=== PATIENT | female | born 2000 ===

== ENCOUNTER 2021-12-24 03:02 | Inpatient (IN) | payer OTHER ==
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
[2021-12-24] MEDS ORDERED: CARBOPROST TROMETHAMINE 250 MCG/1 ML INJ IM PRN (05:25)
[2021-12-24] MEDS ORDERED: OXYTOCIN 10 UNIT/1 ML INJ IM PRN (05:25)
[2021-12-24] MEDS ORDERED: METHYLERGONOVINE MALEATE 0.2 MG/ML VIAL IM PRN (05:25)
[2021-12-24] MEDS ORDERED: fentaNYL 100 MCG/2 ML INJ IV PRN (05:25)
[2021-12-24] MEDS ORDERED: ACETAMINOPHEN 325 MG TAB PO PRN (05:25)
[2021-12-24] MEDS ORDERED: LOPERAMIDE 2 MG CAP PO PRN (05:25)
[2021-12-24] MEDS ORDERED: BUTORPHANOL 2 MG/1 ML INJ IV PRN (05:25)
[2021-12-24] MEDS ORDERED: ePHEDrine SULFATE 50 MG/1 ML INJ IV PRN ×2 (05:25→09:56)
[2021-12-24] MEDS ORDERED: miSOPROStol 200 MCG TAB PR PRN (05:25)
[2021-12-24] MEDS ORDERED: MINERAL OIL 30 ML ORAL LIQD PO PRN (05:25)
[2021-12-24] MEDS ORDERED: TERBUTALINE 1 MG/1 ML INJ SUB-Q PRN (05:25)
[2021-12-24] MEDS ORDERED: LIDOCAINE (2%) 20 MG/1 ML VIAL 20 ML MDV INFILTRATI ONE (05:25)
[2021-12-24] MEDS ORDERED: OXYTOCIN DRIP 30 UNITS/500 ML BAG IV SCH ×2 (06:00)
[2021-12-24 06:58] LABS: Hematocrit 31.6 % (30.3-42.9); Hemoglobin 10.4 gm/dl (10.1-14.3); Mean Corpuscular HGB Conc 33 % (30-34); Mean Corpuscular Volume 85 fl (79-97); Platelet Count 226 K/mm3 (140-440); Red Blood Count 3.72 M/mm3 (3.65-5.03); Red Cell Distribution Width 16.6 % (13.2-15.2)
[2021-12-24] MEDS: LACTATED RINGERS 1,000 ML IV SCH ×3 (09:10→18:02)
[2021-12-24] MEDS ORDERED: NALOXONE 0.4 MG/1 ML INJ IV PRN (09:56)
--- NOTE | 2021-12-24 10:28 | Anesthesia Consultation ---
Anesthesia Consult and Med Hx Date of service: 12/24/21 - Airway Anesthetic Teeth Evaluation: Poor ROM Head & Neck: Adequate Mental/Hyoid Distance: Adequate Mallampati Class: Class II Intubation Access Assessment: Probably Good - Pulmonary Exam CTA: Yes - Cardiac Exam Cardiac Exam: RRR - Pre-Operative Health Status ASA Pre-Surgery Classification: ASA2 Proposed Anesthetic Plan: Epidural - Pulmonary Hx Smoking: Yes (Vaping x 4 yrs) Hx Asthma: No - Cardiovascular System Hx Hypertension: No - Central Nervous System Hx Seizures: No Hx Psychiatric Problems: No - Endocrine Hx Renal Disease: No Hx Hypothyroidism: No Hx Hyperthyroidism: No - Hematic Hx Anemia: No Hx Sickle Cell Disease: No - Other Systems Hx Alcohol Use: Yes Hx Obesity: Yes
--- NOTE | 2021-12-24 10:32 | Progress Note ---
Labor Epidural - Labor Epidural Start Time: 10:00 Stop Time: 10:14 Performed by:: BRAULIO DELEON Procedure: Patient is requesting epidural for labor pain. H&P and labs reviewed. Procedure explained, questions answered, consent obtained. Patient placed in sitting position with monitors applied. Timeout performed immediately before start of procedure. Prep/drape in usual sterile fashion. Skin localized 3 mL 1% lidocaine at L[3]-L[4] interspace. 17-gauge Tuohy epidural needle advanced to DACIA with saline at [8] cm. No blood/CSF noted via epidural needle. Epidural catheter advanced to [12] cm. Negative aspiration for blood and CSF via catheter, negative response to test dose 3 ml 1.5% lidocaine w/ epi. Sterile dressing applied followed by tape reinforcement. Patient tolerated procedure well. No immediate complications noted.
[2021-12-24] MEDS: fentaNYL-BUPIV 2 MCG/ML-0.125% 200 MCG/100 ML BAG EPIDURAL SCH ×2 (11:31→19:47)
--- NOTE | 2021-12-24 18:36 | Progress Note ---
Assessment and Plan Anticipate vaginal delivery - Patient Problems (1) 39 weeks gestation of Current Visit: Yes Status: Acute (2) Active labor at term Current Visit: Yes Status: Acute (3) SROM (spontaneous rupture of membranes) Current Visit: Yes Status: Acute Subjective - Subjective Date of service: 12/24/21 Principal diagnosis: IUP@39 wks SROM Patient reports: no new complaints Objective - Vital Signs Vital Signs: Vital Signs - 12hr 12/24/21 12/24/21 12/24/21 06:37 07:08 07:12 Temperature 98.1 F Pulse Rate 98 H 32 L Blood Pressure 141/80 O2 Sat by Pulse 94 98 Oximetry O2 Sat by Pulse 98 Oximetry [ Anterior Bilateral Throughout] 12/24/21 12/24/21 12/24/21 07:13 07:18 07:23 Temperature Pulse Rate 93 H 89 103 H Blood Pressure O2 Sat by Pulse 97 97 97 Oximetry O2 Sat by Pulse Oximetry [ Anterior Bilateral Throughout] 12/24/21 12/24/21 12/24/21 07:28 07:33 07:38 Temperature Pulse Rate 99 H 100 H 93 H Blood Pressure O2 Sat by Pulse 96 97 96 Oximetry O2 Sat by Pulse Oximetry [ Anterior Bilateral Throughout] 12/24/21 12/24/21 12/24/21 07:43 07:48 07:53 Temperature Pulse Rate 100 H 100 H 97 H Blood Pressure O2 Sat by Pulse 97 96 97 Oximetry O2 Sat by Pulse Oximetry [ Anterior Bilateral Throughout] 12/24/21 12/24/21 12/24/21 08:02 08:07 08:12 Temperature Pulse Rate 101 H 98 H 114 H Blood Pressure O2 Sat by Pulse 97 96 96 Oximetry O2 Sat by Pulse Oximetry [ Anterior Bilateral Throughout] 12/24/21 12/24/21 12/24/21 08:17 08:22 08:27 Temperature Pulse Rate 93 H 91 H 90 Blood Pressure O2 Sat by Pulse 96 96 96 Oximetry O2 Sat by Pulse Oximetry [ Anterior Bilateral Throughout] 12/24/21 12/24/21 12/24/21 08:32 08:37 08:42 Temperature Pulse Rate 95 H 95 H 95 H Blood Pressure O2 Sat by Pulse 96 96 96 Oximetry O2 Sat by Pulse Oximetry [ Anterior Bilateral Throughout] 12/24/21 12/24/21 12/24/21 08:45 08:47 08:52 Temperature Pulse Rate 87 88 106 H Blood Pressure O2 Sat by Pulse 94 96 96 Oximetry O2 Sat by Pulse Oximetry [ Anterior Bilateral Throughout] 12/24/21 12/24/21 12/24/21 08:58 09:03 09:08 Temperature Pulse Rate 101 H 100 H 94 H Blood Pressure O2 Sat by Pulse 99 97 98 Oximetry O2 Sat by Pulse Oximetry [ Anterior Bilateral Throughout] 12/24/21 12/24/21 12/24/21 09:09 09:13 09:18 Temperature 98.5 F Pulse Rate 92 H 92 H 101 H Blood Pressure 121/74 O2 Sat by Pulse 97 98 Oximetry O2 Sat by Pulse Oximetry [ Anterior Bilateral Throughout] 12/24/21 12/24/21 12/24/21 09:23 09:28 09:33 Temperature Pulse Rate 95 H 91 H 87 Blood Pressure O2 Sat by Pulse 98 97 98 Oximetry O2 Sat by Pulse Oximetry [ Anterior Bilateral Throughout] 12/24/21 12/24/21 12/24/21 09:38 09:43 09:52 Temperature Pulse Rate 91 H 91 H 107 H Blood Pressure O2 Sat by Pulse 98 98 99 Oximetry O2 Sat by Pulse Oximetry [ Anterior Bilateral Throughout] 12/24/21 12/24/21 12/24/21 09:57 10:00 10:01 Temperature Pulse Rate 100 H 96 H 99 H Blood Pressure 136/79 141/77 O2 Sat by Pulse 99 Oximetry O2 Sat by Pulse Oximetry [ Anterior Bilateral Throughout] 12/24/21 12/24/21 12/24/21 10:02 10:04 10:05 Temperature Pulse Rate 97 H 98 H 106 H Blood Pressure 142/84 145/93 O2 Sat by Pulse 100 Oximetry O2 Sat by Pulse Oximetry [ Anterior Bilateral Throughout] 12/24/21 12/24/21 12/24/21 10:07 10:09 10:11 Temperature Pulse Rate 108 H 108 H 105 H Blood Pressure 141/71 135/72 136/74 O2 Sat by Pulse 99 Oximetry O2 Sat by Pulse Oximetry [ Anterior Bilateral Throughout] 12/24/21 12/24/21 12/24/21 10:12 10:13 10:15 Temperature Pulse Rate 108 H 100 H 89 Blood Pressure 135/73 134/75 O2 Sat by Pulse 99 Oximetry O2 Sat by Pulse Oximetry [ Anterior Bilateral Throughout] 12/24/21 12/24/21 12/24/21 10:17 10:22 10:23 Temperature Pulse Rate 99 H 94 H 90 Blood Pressure 129/68 118/64 O2 Sat by Pulse 98 98 Oximetry O2 Sat by Pulse Oximetry [ Anterior Bilateral Throughout] 12/24/21 12/24/21 12/24/21 10:27 10:29 10:32 Temperature Pulse Rate 91 H 95 H 94 H Blood Pressure 115/54 O2 Sat by Pulse 97 97 Oximetry O2 Sat by Pulse Oximetry [ Anterior Bilateral Throughout] 12/24/21 12/24/21 12/24/21 10:37 10:42 10:44 Temperature Pulse Rate 96 H 98 H 93 H Blood Pressure 115/59 O2 Sat by Pulse 97 96 Oximetry O2 Sat by Pulse Oximetry [ Anterior Bilateral Throughout] 12/24/21 12/24/21 12/24/21 10:47 10:52 10:57 Temperature Pulse Rate 88 84 91 H Blood Pressure O2 Sat by Pulse 96 96 96 Oximetry O2 Sat by Pulse Oximetry [ Anterior Bilateral Throughout] 12/24/21 12/24/21 12/24/21 11:00 11:02 11:07 Temperature Pulse Rate 85 87 83 Blood Pressure 100/56 O2 Sat by Pulse 96 96 Oximetry O2 Sat by Pulse Oximetry [ Anterior Bilateral Throughout] 12/24/21 12/24/21 12/24/21 11:11 11:12 11:15 Temperature 98.6 F Pulse Rate 77 84 96 H Blood Pressure 106/66 O2 Sat by Pulse 94 97 Oximetry O2 Sat by Pulse Oximetry [ Anterior Bilateral Throughout] 12/24/21 12/24/21 12/24/21 11:17 11:22 11:27 Temperature Pulse Rate 94 H 90 94 H Blood Pressure O2 Sat by Pulse 96 97 97 Oximetry O2 Sat by Pulse Oximetry [ Anterior Bilateral Throughout] 12/24/21 12/24/21 12/24/21 11:29 11:32 11:37 Temperature Pulse Rate 94 H 92 H 83 Blood Pressure 111/70 O2 Sat by Pulse 96 97 Oximetry O2 Sat by Pulse Oximetry [ Anterior Bilateral Throughout] 12/24/21 12/24/21 12/24/21 11:42 11:47 11:52 Temperature Pulse Rate 95 H 97 H 101 H Blood Pressure O2 Sat by Pulse 97 97 97 Oximetry O2 Sat by Pulse Oximetry [ Anterior Bilateral Throughout] 12/24/21 12/24/21 12/24/21 11:54 11:57 12:02 Temperature Pulse Rate 90 92 H 100 H Blood Pressure O2 Sat by Pulse 94 97 96 Oximetry O2 Sat by Pulse Oximetry [ Anterior Bilateral Throughout] 12/24/21 12/24/21 12/24/21 12:07 12:12 12:13 Temperature Pulse Rate 102 H 93 H 98 H Blood Pressure O2 Sat by Pulse 96 96 94 Oximetry O2 Sat by Pulse Oximetry [ Anterior Bilateral Throughout] 12/24/21 12/24/21 12/24/21 12:17 12:22 12:27 Temperature Pulse Rate 105 H 93 H 95 H Blood Pressure O2 Sat by Pulse 97 96 97 Oximetry O2 Sat by Pulse Oximetry [ Anterior Bilateral Throughout] 12/24/21 12/24/21 12/24/21 12:32 12:37 12:41 Temperature Pulse Rate 84 93 H 86 Blood Pressure 108/59 O2 Sat by Pulse 96 97 Oximetry O2 Sat by Pulse Oximetry [ Anterior Bilateral Throughout] 12/24/21 12/24/21 12/24/21 12:42 12:47 13:41 Temperature 98.2 F Pulse Rate 88 90 Blood Pressure O2 Sat by Pulse 96 97 Oximetry O2 Sat by Pulse Oximetry [ Anterior Bilateral Throughout] 12/24/21 12/24/21 12/24/21 13:42 14:43 15:42 Temperature Pulse Rate 85 92 H 93 H Blood Pressure 107/58 110/57 108/55 O2 Sat by Pulse Oximetry O2 Sat by Pulse Oximetry [ Anterior Bilateral Throughout] 12/24/21 12/24/21 12/24/21 16:42 16:50 17:41 Temperature 98.2 F Pulse Rate 90 95 H Blood Pressure 110/62 108/62 O2 Sat by Pulse Oximetry O2 Sat by Pulse Oximetry [ Anterior Bilateral Throughout] 12/24/21 18:03 Temperature 98.2 F Pulse Rate Blood Pressure O2 Sat by Pulse Oximetry O2 Sat by Pulse Oximetry [ Anterior Bilateral Throughout] - Exam Breasts: deferred Cardiovascular: Normal S1 Lungs: Normal air movement Abdomen: Present: normal appearance, soft. Absent: distention, tenderness, guarding Vulva: both: normal Uterus: Present: fundal height above umbilicus. Absent: tenderness FHR: category 1 Uterine Contraction Monitor Mode: Internal Cervical Dilatation: 5 (forebag ruptured, copiuos clear fluid, ISE and IUPG placed w/o difficulty after verbal consent obtained) Cervical Effacement Percentage: 70 station: -1 Uterine Contraction Frequency (min): 3 Uterine Contraction Pattern: Regular Extremities: normal - Labs Labs: Abnormal Labs 12/24/21 06:45 RDW 16.6 H Laboratory Results - last 24 hr 12/24/21 12/24/21 12/24/21 06:45 06:45 12:46 WBC 9.5 RBC 3.72 Hgb 10.4 Hct 31.6 MCV 85 MCH 28 MCHC 33 RDW 16.6 H Plt Count 226 Membranes Rupture SARS-CoV-2 (PCR) Negative Blood Type O POSITIVE Antibody Screen Negative 12/24/21 Unknown WBC RBC Hgb Hct MCV MCH MCHC RDW Plt Count Membranes Rupture Negative SARS-CoV-2 (PCR) Blood Type Antibody Screen
[2021-12-24] MEDS ORDERED: CARBOPROST TROMETHAMINE 250 MCG/1 ML INJ IM ONE (21:05)
[2021-12-24] MEDS ORDERED: METHYLERGONOVINE MALEATE 0.2 MG/ML VIAL IM ONE (21:05)
[2021-12-24] MEDS ORDERED: miSOPROStol 200 MCG TAB ONE (21:05)
--- NOTE | 2021-12-24 21:25 | Procedure Note ---
OB Delivery Note - Delivery Date of Delivery: 12/24/21 Surgeon: JOSE ANTONIO PEÑA Estimated blood loss: other (450mL) - Vaginal Delivery presentation: vertex Delivery position: OA Intrapartum events: none Delivery augmentation: pitocin Delivery monitor: external FHT, external uterine, internal FHT, internal uterine Route of delivery: Delivery placenta: spontaneous (intact) Episiotomy: none Anesthesia: epidural Delivery comments: Mild uterine atony noted after delivery that resolved with Pitocin bolus, Methergine 0.2mg IM and manual uterine massage. - A at 1 minute: 9 at 5 minutes: 9 Infant Gender: Male (8lbs 10oz)
[2021-12-25] MEDS ORDERED: OXYTOCIN DRIP 30 UNITS/500 ML BAG IV SCH (00:03)
[2021-12-25] MEDS ORDERED: WITCH HAZEL/ GLYCERIN PAD TP PRN (00:03)
[2021-12-25] MEDS ORDERED: ONDANSETRON 4 MG/2 ML INJ IV PRN (00:03)
[2021-12-25] MEDS ORDERED: DOCUSATE SODIUM 100 MG CAP PO PRN (00:03)
[2021-12-25] MEDS ORDERED: PROMETHAZINE 25 MG TAB PO PRN (00:03)
[2021-12-25] MEDS ORDERED: MAGNESIUM HYDROXIDE (MOM) ORAL LIQD UDC PO PRN (00:03)
[2021-12-25] MEDS ORDERED: SENNOSIDES/DOCUSATE SODIUM 8.6/50 MG TAB PO PRN (00:03)
[2021-12-25] MEDS ORDERED: PROMETHAZINE 25 MG RECT SUPP PR PRN (00:03)
[2021-12-25] MEDS ORDERED: ACETAMINOPHEN 500 MG TAB PO PRN (00:03)
[2021-12-25] MEDS ORDERED: diphenhydrAMINE 25 MG CAP PO PRN (00:03)
[2021-12-25] MEDS: IBUPROFEN 800 MG TAB PO PRN ×3 (00:35→23:46)
[2021-12-25] MEDS ORDERED: TETANUS,DIPH,PERTUSS(ACELL) VACCINE 0.5 ML SYRINGE IM ONE (06:00)
[2021-12-25] MEDS: LANOLIN/ZINC/DIMETHICONE (LANSINOH) 7 GM TP PRN ×2 (08:17→20:03)
--- NOTE | 2021-12-25 09:34 | Progress Note ---
Assessment and Plan - Patient Problems (1) Delivery normal Current Visit: Yes Status: Acute Plan to address problem: Continue PP athway, ? home tomorrow (2) 39 weeks gestation of Current Visit: Yes Status: Acute (3) Active labor at term Current Visit: Yes Status: Acute (4) SROM (spontaneous rupture of membranes) Current Visit: Yes Status: Acute Subjective - Subjective Date of service: 12/25/21 Principal diagnosis: PPD#1 Interval history: No complaints, minimal bleeding Patient reports: appetite normal, voiding normally, pain well controlled, ambulating normally Objective - Vital Signs Latest vital signs: Vital Signs Temp Pulse Resp BP BP Pulse Ox Pulse Ox 12/25/21 08:05 95 12/25/21 07:39 98.0 F 74 18 115/79 95 12/24/21 23:45 98.2 F 97 H 20 126/85 100 12/24/21 23:30 99 12/24/21 22:41 80 124/81 12/24/21 22:29 98.4 F 12/24/21 22:03 85 117/66 12/24/21 21:41 95 H 118/89 12/24/21 21:28 97.3 F L 12/24/21 20:42 100 H 127/73 12/24/21 19:47 99 12/24/21 19:45 98.6 F 12/24/21 19:42 91 H 117/68 12/24/21 18:42 96 H 114/66 12/24/21 18:03 98.2 F 12/24/21 17:41 95 H 108/62 12/24/21 16:50 98.2 F 12/24/21 16:42 90 110/62 12/24/21 15:42 93 H 108/55 12/24/21 14:43 92 H 110/57 12/24/21 13:42 85 107/58 12/24/21 13:41 98.2 F 12/24/21 12:47 90 97 12/24/21 12:42 88 96 12/24/21 12:41 86 108/59 12/24/21 12:37 93 H 97 12/24/21 12:32 84 96 12/24/21 12:27 95 H 97 12/24/21 12:22 93 H 96 12/24/21 12:17 105 H 97 12/24/21 12:13 98 H 94 12/24/21 12:12 93 H 96 12/24/21 12:07 102 H 96 12/24/21 12:02 100 H 96 12/24/21 11:57 92 H 97 12/24/21 11:54 90 94 12/24/21 11:52 101 H 97 12/24/21 11:47 97 H 97 12/24/21 11:42 95 H 97 12/24/21 11:37 83 97 12/24/21 11:32 92 H 96 12/24/21 11:29 94 H 111/70 12/24/21 11:27 94 H 97 12/24/21 11:22 90 97 12/24/21 11:17 94 H 96 12/24/21 11:15 98.6 F 96 H 106/66 12/24/21 11:12 84 97 12/24/21 11:11 77 94 12/24/21 11:07 83 96 12/24/21 11:02 87 96 12/24/21 11:00 85 100/56 12/24/21 10:57 91 H 96 12/24/21 10:52 84 96 12/24/21 10:47 88 96 12/24/21 10:44 93 H 115/59 12/24/21 10:42 98 H 96 12/24/21 10:37 96 H 97 12/24/21 10:32 94 H 97 12/24/21 10:29 95 H 115/54 12/24/21 10:27 91 H 97 12/24/21 10:23 90 118/64 12/24/21 10:22 94 H 98 12/24/21 10:17 99 H 129/68 98 12/24/21 10:15 89 134/75 12/24/21 10:13 100 H 135/73 12/24/21 10:12 108 H 99 12/24/21 10:11 105 H 136/74 12/24/21 10:09 108 H 135/72 12/24/21 10:07 108 H 141/71 99 12/24/21 10:05 106 H 145/93 12/24/21 10:04 98 H 142/84 12/24/21 10:02 97 H 100 12/24/21 10:01 99 H 141/77 12/24/21 10:00 96 H 136/79 12/24/21 09:57 100 H 99 12/24/21 09:52 107 H 99 12/24/21 09:43 91 H 98 12/24/21 09:38 91 H 98 12/24/21 09:33 87 98 Intake and Output 12/24/21 12/25/21 12/25/21 22:59 06:59 14:59 Intake Total 1065.966 120 Output Total 300 400 Balance 765.966 -280 Intake: IV 1065.966 Lactated Ringers 1,000 ml 1000 @ 125 mls/hr IV DIRECT MICHAELA Rx#:[id number] PITOCin/NS 30 UNIT/500ML 65.966 30 units In 500 ml @ 2 mls/hr IV TITR MICHAELA Rx#: [id number] Oral 120 Output: Urine 300 400 Indwelling Catheter 300 Void 400 Other: Total, Intake Amount 120 Total, Output Amount 100 400 Estimated Blood Loss 450 - Exam Breasts: Present: normal, . Absent: pain, skin changes, engorged Lungs: Present: Normal air movement Abdomen: Present: normal appearance, soft. Absent: distention, tenderness, guarding Uterus: Present: fundal height below umbilicus. Absent: tenderness Extremities: Present: normal, edema (+1). Absent: tenderness
[2021-12-25 10:09] LABS: Hematocrit 31.3 % (30.3-42.9); Hemoglobin 10.3 gm/dl (10.1-14.3)
[2021-12-25] MEDS: PRENATAL VIT27-FE FUMARATE-FOLIC ACID VIT TAB PO SCH (10:27)
[2021-12-25] MEDS: FERROUS SULFATE 325 MG TAB PO SCH (10:27)
--- NOTE | 2021-12-25 12:38 | Post Anesthesia Evaluation ---
- Post Anesthesia Evaluation Patient Participated: Yes Airway Patent: Yes Stable Respiratory Function: Yes Nausea/Vomiting: No Temp > 96.8F: Yes Pain Manageable: Yes Adequeate Hydration: Yes Anesthesia Complications: No Block Receding Appropriately: Yes Patient on Ventilator: No
[2021-12-26] MEDS: IBUPROFEN 800 MG TAB PO PRN (05:46)
--- NOTE | 2021-12-26 08:36 | Discharge Summary ---
Providers - Providers Date of Admission: 12/24/21 05:26 Date of discharge: 12/26/21 Attending physician: NIKOLAS HOLCOMB 12/25/21 00:03 Consult to Miniature Train Driver [CONS] Routine Reason For Exam: assistance with , SNS Primary care physician: ANALYST PROGRAMMER Hospitalization Reason for admission: other (leaking fluid) Delivery: Procedure details: see delivery noted Episiotomy: none Laceration: none [place] baby: male Hospital course: Pt admitted and underwent IOL for presumed srom. was not complicated. pt to be d/c home today PPD#2 Condition at discharge: Good Disposition: HOME / SELF CARE / HOMELESS - Discharge Diagnoses (1) 39 weeks gestation of Status: Acute (2) SROM (spontaneous rupture of membranes) Status: Acute (3) Active labor at term Status: Acute (4) Delivery normal Status: Acute Plan - Discharge Medications Prescriptions: Lidocain2.5%/Prilocai2.5% [Emla] 5 gm TP ONCE #1 tube Ferrous Sulfate [Feosol 325 MG tab] 325 mg PO DAILY #90 tablet Ibuprofen [Motrin 600 MG tab] 600 mg PO Q6H PRN #30 tablet PRN Reason: Pain - Provider Discharge Summary Activity: no sex for 6 weeks, no heavy lifting 4 weeks Diet: routine Instructions: routine Additional instructions: [] Smoking cessation referral if applicable(refer to patient education folder for contact #) [] Refer to [facility]'s [facility] Booklet Call your doctor immediately for: * Fever > 100.5 * Heavy vaginal bleeding ( >1 pad per hour) * Severe persistent headache * Shortness of breath * Reddened, hot, painful area to leg or breast * Drainage or odor from incision. * Keep incision clean and dry at all times and follow doctor's instructions regarding bathing/showering CALL THE OFFICE TO SCHEDULE THE CIRCUMCISION FOR THE BABY AND YOUR 4 WK POST VISIT. - Follow up plan Follow up: PRIMARY CARE, [Primary Care Provider] - 7 Days
[2021-12-26] MEDS: FERROUS SULFATE 325 MG TAB PO SCH (10:42)
[2021-12-26] MEDS: PRENATAL VIT27-FE FUMARATE-FOLIC ACID VIT TAB PO SCH (10:42)
[2021-12-26 13:52] VITALS: BP 113/76
== END 2021-12-26 15:15 | disposition home or self-care (01) | DRG 807 ==
LOC: TRG 03:02 → APU 03:02 → TRG 05:26 → LD 05:26 → OB 12-25
PROVIDERS: ADMIT Obstetrics & Gynecology; ATTEND Obstetrics & Gynecology
PROC: 10E0XZZ Delivery of Products of Conception, External Approach (ICD-10-PCS; principal; 2021-12-24)
PROC: 3E0R3BZ Introduction of Anesthetic Agent into Spinal Canal, Percutaneous Approach (ICD-10-PCS; 2021-12-24)
PROC: 00HU33Z Insertion of Infusion Device into Spinal Canal, Percutaneous Approach (ICD-10-PCS; 2021-12-24)
PROC: 3E0234Z Introduction of Serum, Toxoid and Vaccine into Muscle, Percutaneous Approach (ICD-10-PCS; 2021-12-25)
DX: O99.214 Obesity complicating childbirth (principal); Z37.0 Single live birth; Z20.822 Contact with and (suspected) exposure to COVID-19; Z3A.39 39 weeks gestation of pregnancy; Z23 Encounter for immunization; Z82.3 Family history of stroke; Z82.49 Family history of ischemic heart disease and other diseases of the circulatory system; Z80.3 Family history of malignant neoplasm of breast; Z80.41 Family history of malignant neoplasm of ovary; Z80.0 Family history of malignant neoplasm of digestive organs; F17.290 Nicotine dependence, other tobacco product, uncomplicated; O75.89 Other specified complications of labor and delivery
CPT/HCPCS: 36415; 84112; 85014; 85018; 85027; 86850; 86900; 86901; G0378; J3490; J2590; J7120; U0003